=== PATIENT | male | born 1985 | race American Indian/Alaskan Native ===

== ENCOUNTER 2016-11-21 13:07 | Inpatient (IN) | payer MEDICAID, OTHER ==
[2016-11-21 13:23] VITALS: BMI 25.1
[2016-11-21 13:24] VITALS: O2SAT 100
--- NOTE | 2016-11-21 15:00 | ED PDOC ---
HPI: Psych/Substance Abuse Time Seen by Provider: 11/21/16 13:30 Chief Complaint (Nursing): Psychiatric Evaluation Chief Complaint (Provider): Suicidal Ideation History Per: Patient History/Exam Limitations: no limitations Onset/Duration Of Symptoms: Days (past couple of days) Current Symptoms Are (Timing): Still Present Suicide/Self Injury Attempted (Context): None Associated Symptoms: Suicidal Thoughts. denies: Suicidal Plan Involuntary Hold By: None Additional Complaint(s): Jose Pierre is a 31 year old male who presents to the ED on 11/21/16 with complaints of suicidal ideation that he has experienced over the past couple of days. Though he denies any homicidal ideation or active suicidal plan, patient does admit to having been noncompliant with his Effexor x2 weeks. Patient also reports having sustained a laceration to his posterior left hand 3 days ago, but otherwise has no physical complaints. PMD: none Past Medical History Reviewed: Historical Data, Nursing Documentation, Vital Signs Vital Signs: Last Vital Signs Temp 98.8 F 11/21/16 13:22 Pulse 85 11/21/16 13:22 Resp 16 11/21/16 13:22 BP 152/68 H 11/21/16 13:22 Pulse Ox 100 11/21/16 13:22 - Family History Family History: States: Unknown Family Hx - Home Medications Home Medications: Ambulatory Orders Medication Instructions Recorded Venlafaxine [Effexor-XR] 75 mg PO DAILY #30 cer 11/26/16 - Allergies Allergies/Adverse Reactions: Allergies Allergy/AdvReac Type Severity Reaction Status Date / Time No Known Allergies Allergy Verified 11/21/16 13:24 Review of Systems Psych: Positive for: Suicidal ideation (w/o active plan). Negative for: Other ( no homicidal ideation) Physical Exam - Reviewed Nursing Documentation Reviewed: Yes Vital Signs Reviewed: Yes - Physical Exam Appears: Positive for: Non-toxic, No Acute Distress Head Exam: Positive for: ATRAUMATIC, NORMOCEPHALIC Skin: Positive for: Normal Color, Warm, Dry Cardiovascular/Chest: Positive for: Regular Rate, Rhythm. Negative for: Murmur Respiratory: Positive for: Normal Breath Sounds. Negative for: Respiratory Distress Extremity: Positive for: Other (healing laceration noted to dorsum of left hand ; no signs of infection) Neurologic/Psych: Positive for: Alert, Oriented - Laboratory Results Result Diagrams: 11/21/16 16:15 11/21/16 16:15 - ECG O2 Sat by Pulse Oximetry: 100 (RA) Pulse Ox Interpretation: Normal Medical Decision Making Medical Decision Makin:30 Initial Impression: will clear patient medically for psychiatric evaluation Initial Plan: * Labs * Alcohol Serum * Urinalysis * Urine Drug Screen * Crisis Evaluation * Reevaluation Scribe Attestation: Documented by Giovanna Montgomery, acting as a scribe for Carline Zayas PA-C. Provider Scribe Attestation: All medical record entries made by the Scribe were at my direction and personally dictated by me. I have reviewed the chart and agree that the record accurately reflects my personal performance of the history, physical exam, medical decision making, and the department course for this patient. I have also personally directed, reviewed, and agree with the discharge instructions and disposition. Disposition - Clinical Impression Clinical Impression: Depression - Patient ED Disposition Is Patient to be Admitted: Yes - Disposition Disposition Time: 14:15 Condition: STABLE
[2016-11-21 16:21] LABS: HEMATOCRIT 38.6 % (35.0-51.0); MEAN CELL VOLUME 91.3 fl (80.0-94.0); MEAN CORPUSCULAR HEMOGLOBIN 30.6 pg (27.0-31.0); MEAN CORPUSCULAR HGB CONC 33.6 g/dL (33.0-37.0); RED CELL DISTRIBUTION WIDTH 14.8 % (11.5-14.5); WHITE BLOOD COUNT 5.4 K/uL (4.8-10.8)
[2016-11-21 16:40] LABS: RBC URINE < 1 /hpf (0-3); URINE BACTERIA FEW (<OCC); URINE BILIRUBIN NEGATIVE (NEGATIVE); URINE BLOOD NEGATIVE (NEGATIVE); URINE COLOR YELLOW (YELLOW); URINE GLUCOSE (UA) NEG (Normal); URINE KETONE NEGATIVE (NEGATIVE); URINE LEUKOCYTE ESTERASE NEG Leu/uL (Negative); URINE PROTEIN NEGATIVE (NEGATIVE); URINE UROBILINOGEN 0.2-1.0 mg/dL (0.2-1.0); WBC URINE 6 /hpf (0-5)
[2016-11-21 16:47] LABS: ALB/GLOB RATIO 0.9 (1.0-2.1); ALCOHOL SERUM < 10 mg/dl (0-10); ALKALINE PHOSPHATASE 58 U/L (38-126); ALT/SGPT 16 U/L (21-72); AST/SGOT 41 U/L (17-59); BILIRUBIN,TOTAL 0.4 mg/dl (0.2-1.3); BLOOD UREA NITROGEN 7 mg/dl (9-20); CALCIUM 8.7 mg/dL (8.4-10.2); CARBON DIOXIDE 25 mmol/L (22-30); CHLORIDE 103 mmol/L (98-107); GFR AFRICAN-AMERICAN > 60; GLUCOSE,RANDOM 92 mg/dL (75-110); POTASSIUM 3.8 MMOL/L (3.6-5.0); SODIUM 140 mmol/l (132-148); TOTAL PROTEIN 7.7 G/DL (6.3-8.2)
[2016-11-21] MEDS ORDERED: DiphenhydrAMINE 50 mg/ml Inj IM PRN (20:07)
[2016-11-21] MEDS ORDERED: Bismuth Subsalicylate 262 mg/15 ml Sus (240 ml) PO PRN (21:05)
[2016-11-21] MEDS ORDERED: Magnesium Hydroxide Susp 30 ml UD PO PRN (21:05)
[2016-11-21] MEDS ORDERED: Alum-Mag Hydrox-Simethicone Susp (30 mL) PO PRN (21:05)
[2016-11-22 08:32] LABS: T4 6.05 ug/dl (5.5-11.0)
[2016-11-22 09:40] LABS: THYROID STIMULATING HORMONE 0.35 mIU/ML (0.46-4.68)
--- NOTE | 2016-11-22 11:13 | CP.PCM.CON ---
History of Present Illness - History of Present Illness History of Present Illness: 31 yo male with recent diagnosis of HIV infection (6 months ago) admitted to Psyche unit after after slashing his left wrist with a broken glass 2 days ago. He claimed he is depress because his had left him due to his HIV status. He also complained of watery diarrhea since 2 days ago. Review of Systems - Review of Systems All systems: reviewed and no additional remarkable complaints except (aside from those mentioned above, 12 point system review were negative by me) Past Patient History - Past Social History Smoking Status: Heavy Smoker > 10 Cigarettes Daily Chewing Tobacco Use: No Cigar Use: No Alcohol: > 2 Drinks/Day Drugs: Cocaine - CARDIAC Hx Cardiac Disorders: No Hx Hypertension: No - PULMONARY Hx Respiratory Disorders: No Hx Tuberculosis: No - NEUROLOGICAL Hx Neurological Disorder: No HX Cerebrovascular Accident: No Hx Seizures: No - HEENT Hx HEENT Problems: No - RENAL Hx Chronic Kidney Disease: No - ENDOCRINE/METABOLIC Hx Endocrine Disorders: No - HEMATOLOGICAL/ONCOLOGICAL Hx Cancer: No Hx Human Immunodeficiency Virus (HIV): Yes - INTEGUMENTARY Hx Dermatological Problems: No - MUSCULOSKELETAL/RHEUMATOLOGICAL Hx Musculoskeletal Disorders: No - GASTROINTESTINAL Hx Diarrhea: Yes - GENITOURINARY/GYNECOLOGICAL Hx Genitourinary Disorders: No Hx Sexually Transmitted Disorders: No - PSYCHIATRIC Hx Depression: Yes Hx Substance Use: Yes - SURGICAL HISTORY Hx Surgeries: No - ANESTHESIA Hx Anesthesia: No Meds Allergies/Adverse Reactions: Allergies Allergy/AdvReac Type Severity Reaction Status Date / Time No Known Allergies Allergy Verified 11/21/16 13:24 - Medications Medications: Current Medications Acetaminophen (Tylenol 325mg Tab) 650 mg PO Q4 PRN PRN Reason: Pain, moderate (4-7) Al Hydrox/Mg Hydrox/Simethicone (Maalox Plus 30 Ml) 30 ml PO Q4 PRN PRN Reason: Dyspepsia Bismuth Subsalicylate (Pepto-Bismol) 524 mg PO Q4 PRN PRN Reason: Diarrhea Diphenhydramine HCl (Benadryl) 50 mg PO Q6 PRN PRN Reason: Extrapyramidal Symptoms Diphenhydramine HCl (Benadryl) 50 mg IM Q6 PRN PRN Reason: Extrapyramidal S/S Unable PO Diphenhydramine HCl (Benadryl) 50 mg PO HS PRN PRN Reason: Sleep Haloperidol (Haldol) 5 mg PO Q4 PRN PRN Reason: Agitation Haloperidol Lactate (Haldol) 5 mg IM Q4 PRN PRN Reason: Agitation, Unable to Take PO Lorazepam (Ativan) 2 mg PO Q4 PRN PRN Reason: Anxiety/Agitation Lorazepam (Ativan) 2 mg IM Q4 PRN PRN Reason: Anxiety/Agitation,Unable PO Magnesium Hydroxide (Milk Of Magnesia) 30 ml PO HS PRN PRN Reason: Constipation Venlafaxine HCl (Effexor) 75 mg PO DAILY [facility] Last Admin: 11/22/16 08:59 Dose: 75 mg Physical Exam - Constitutional Appears: No Acute Distress - Head Exam Head Exam: ATRAUMATIC - Eye Exam Eye Exam: absent: Scleral icterus - ENT Exam ENT Exam: Mucous Membranes Moist - Neck Exam Neck exam: Negative for: Meningismus - Respiratory Exam Respiratory Exam: absent: Rhonchi, Wheezes, Respiratory Distress - Cardiovascular Exam Cardiovascular Exam: REGULAR RHYTHM, +S1, +S2 - GI/Abdominal Exam GI & Abdominal Exam: Soft. absent: Tenderness - Rectal Exam Rectal Exam: Deferred - Extremities Exam Extremities exam: Negative for: normal inspection (dry and healing gaping laceration on left wrist) - Back Exam Back exam: absent: tenderness - Neurological Exam Neurological exam: Alert, Oriented x3 - Psychiatric Exam Psychiatric exam: Normal Affect - Skin Skin Exam: Dry, Intact Results - Vital Signs Recent Vital Signs: Last Vital Signs Temp 98.4 F 11/22/16 06:00 Pulse 77 11/22/16 06:00 Resp 18 11/22/16 06:00 BP 121/78 11/22/16 06:00 Pulse Ox 100 11/21/16 19:30 - Labs Result Diagrams: 11/21/16 16:15 11/21/16 16:15 Labs: Laboratory Results - last 24 hr 11/22/16 07:00 Triglycerides 58 Cholesterol 156 LDL Cholesterol Direct 91 HDL Cholesterol 42 Thyroxine (T4) 6.05 TSH 3rd Generation 0.35 L Assessment & Plan (1) Suicidal intent Status: Acute Comment: psyche is managing (2) Depression Status: Acute Comment: psyche is managing (3) HIV infection Status: Acute Comment: Viral Load and CD4/CD8 study. ID consult with Dr Schuster
--- NOTE | 2016-11-22 12:32 | PCM.PSYCH ---
Initial Psychiatric Evaluation - Initial Psychiatric Evaluation Type of Admission: Voluntary Legal Status: Capacity Chief Complaint (in patient's own words): "I WANTED TO KILL MYSELF" Patient's Reaction to Hospitalization: 31Y/O AA MALE W/ W/O DEPRESSION PRESENTS WITH WORSENING DEPRESSION IN THE CONTEXT OF NON-COMPLIANCE WITH TREATMENT, HIV+ STATUS AND SEPARATION FROM HIS . HE RECENTLY RELOCATED TO [place] FROM [place] DUE TO BECOMING ESTRANGED FROM HIS FAMILY. PT REPORTED THAT HE WAS FORCED TO RELOCATE ONCE HE REVEALED TO HIS FAMILY THAT HE IS HIV+ AND THEY COMPLETELY TURNED THEIR BACK ON HIM. PT REPORTED THAT HE HAS FAMILY IN [place] BUT UPON ARRIVAL TO THIS AREA HAS NO IDEA WHERE TO LOCATE SAID FAMILY. PT REPORTED THAT HE HAS BEEN WITHOUT HIS EFFEXOR FOR ONE WEEK NOW WHEREAS HE RAN OUT. HE REPORTED THAT APPROXIMATELY TWO DAYS AGO HE STARTED TO FEEL HOPELESS AND HELPLESS. HE REPORTED THAT HE STARTED TO BECOME OVERWHELMINGLY DEPRESSED AT WHICH TIME HE GAVE HIMSELF A TWO INCH LACERATION TO HIS LEFT FOREARM IN AN ATTEMPT TO HARM HIMSELF. PT PRESENTED TO THIS ER BECAUSE IN THE COMMUNITY HE WAS NOT ABLE TO CONTRACT FOR HIS SAFETY AND WAS AFRAID OF HIS OWN ACTIONS AND IMPULSIVITY. PT REPORTED BEING DISTRAUGHT OVER THE FACT THAT HIS FAMILY BECAME EXTREMELY JUDGMENTAL AND UNSUPPORTIVE UPON FINDING OUT THAT HE IS HIV+. HE BECAME MILDLY TEARFUL AND APATHETIC HE DESCRIBED HOW THEY THREW HIM AWAY BECAUSE OF IT AND REPORTED BEING REGRETFUL FOR TELLING THEM. PT REPORTED THAT HE WAS DIAGNOSED 7 MONTHS AGO AND HAS BEEN IN DENIAL HIMSELF; THEREFORE HAS NOT FOLLOWED UP WITH ANY ID DOCTORS. PT ADMITS TO USAGE OF COCAINE AND MARIJUANA. HE REPORTED THAT HE IS A SOCIAL USER AND ONLY USES ON THE WEEKEND. HE REPORTED THAT THE LAST TIME THAT HE USED WAS ONE WEEK AGO. PPHX: PT DENIED PRIOR ADMISSIONS. PT REPORTED THAT HE WAS IN TREATMENT WITH A PSYCHIATRIST IN [place]. HE REPORTED THAT HE WAS BEING PRESCRIBED EFFEXOR 75MGS BUT RAN OUT APPROXIAMTELY ONE WEEK AGO. PMHx: PT WAS DIAGNOSED WITH HIV 7 MONTHS AGO AND HAS NOT FOLLOWED UP WITH REGARDS TO HIS STATUS OR CURRENT TREATMENT SHX: PT REPORTED THAT HE HAS A HX OF ARRESTS IN [place] FOR BURGLARY AND [employer]AGON THEFT. 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 FROM . +4 KIDS, +COCAINE AND MARIJUANA USE. +WEEKEND ETOH USE, NO H/O ETOH WITHDRAWAL. ALL: NKDA FHx: NO FAMILY H/O MENTAL ILLNESS Current Medications: Active Medications Generic Name Dose Route Start Last Admin Trade Name Freq PRN Reason Stop Dose Admin Acetaminophen 650 mg 11/21/16 21:05 Tylenol 325mg Tab PO Q4 PRN Pain, moderate (4-7) Al Hydrox/Mg Hydrox/Simethicone 30 ml 11/21/16 21:05 Maalox Plus 30 Ml PO Q4 PRN Dyspepsia Bismuth Subsalicylate 524 mg 11/21/16 21:05 Pepto-Bismol PO Q4 PRN Diarrhea Diphenhydramine HCl 50 mg 11/21/16 20:07 Benadryl PO Q6 PRN Extrapyramidal Symptoms Diphenhydramine HCl 50 mg 11/21/16 20:07 Benadryl IM Q6 PRN Extrapyramidal S/S Unable PO Diphenhydramine HCl 50 mg 11/21/16 20:10 Benadryl PO HS PRN Sleep Haloperidol 5 mg 11/21/16 20:07 Haldol PO Q4 PRN Agitation Haloperidol Lactate 5 mg 11/21/16 20:07 Haldol IM Q4 PRN Agitation, Unable to Take PO Lorazepam 2 mg 11/21/16 20:07 Ativan PO Q4 PRN Anxiety/Agitation Lorazepam 2 mg 11/21/16 20:07 Ativan IM Q4 PRN Anxiety/Agitation,Unable PO Magnesium Hydroxide 30 ml 11/21/16 21:05 Milk Of Magnesia PO HS PRN Constipation Venlafaxine HCl 75 mg 11/22/16 09:00 11/22/16 08:59 Effexor PO 75 mg DAILY [facility] Administration Past Psychiatric History - Past Psychiatric History Pertinent Medical Hx (Current Medical&Sleep Prob, Allergies): Allergies Allergy/AdvReac Type Severity Reaction Status Date / Time No Known Allergies Allergy Verified 11/21/16 13:24 Venlafaxine [Effexor] 75 mg PO DAILY 11/21/16 Review of Systems - Review of Systems All systems: reviewed and no additional remarkable complaints except - Psychiatric Psychiatric: Depression, Difficulty Concentrating, Irritability, Mood Swings, Suicidal Ideation Mental Status Examination - Personal Presentation Personal Presentation: Looks stated age - Affect Affect: Constricted - Motor Activity Motor Activity: Calm - Reliability in Providing Information Reliability in Providing Information: Good - Speech Speech: Organized - Mood Mood: Depressed - Formal Thought Process Formal Thought Process: No Impairment - Obsessions/Compulsions Obsessions: No Compulsions: No - Cognitive Functions Orientation: Person, Place, Situation, Time Sensorium: Alert Estimate of Intelligence: Average Judgement: Intact, as evidence by: Good judgement, Intact, as evidence by: Insight regarding need for hospitalization Memory: Recent intact, as evidence by: Ability to recall events of the day, Recent intact, as evidence by: 3/3 object recall, Remote intact, as evidenced by : Abilit to recall sig. life events, Remote intact, as evidenced by: Ability to recall historical events - Risk Risk: Suicidal - Strength & Assets Inventory Strength & Assets Inventory: Cooperative - Limitations Limitations: Other (HOMELESSNESS, LACK OF SOCIAL SUPPORT, POVERTY) DSM 5 DX - DSM 5 DSM 5 Diagnosis: Major Depressive Disorder w/o psychotic symptoms - Recommended/Plan of Treatment Treatment Recommendations and Plan of Treatment: 31 yo male w/ h/o depression, reports worsening depression in the context of non -compliance with medications, recent diagnosis of HIV, lack of social support and recent separation from his . Patient has had recent suicidal ideation, but denies self injurious thoughts now and is able to contract for safety. -Admit to psychiatry -Hospitalist consult -ID consult re: HIV -Restart Effexor 75 mg PO Daily -No 1:1 needed at this time as the patient is able to contract for safety -Individual, group and milieu tx Projected ELOS: 3-5 days Discharge Plan and Discharge Criteria: Discharge when psychiatrically stable
--- NOTE | 2016-11-23 11:38 | PCM.PYCHPN ---
Psychiatric Progress Note - Psychiatric Progress Note Patient seen today, length of contact: Patient evaluated, case discussed with team, chart reviewed, 35 min Patient Chief Complaint: "I'm feeling better" Problems Identified/Issues Discussed: Patient reports that his mood has been improving since admission. He is hopeful now that he is receiving treatment and would like to be set up with follow-up care following discharge. No suicidal ideation/plan/intent. No nancie /delusions/hallucinations/HI/paranoia. He has improved appetite and sleep. Medication Change: No Medical Record Reviewed: Yes Mental Status Examination - Cognitive Function Orientation: Person, Place, Situation, Time Memory: Intact Attention: WNL Concentration: WNL Association: WNL Fund of Knowledge: WN Decription of patient's judgement and insights: Fair I/J - Mood Mood: Depressed - Affect Affect: Constricted - Speech Speech: Appropriate - Formal Thought Process Formal Thought Process: No Impairment Psychotic Thoughts and Behaviors: NO AH/VH/paranoia - Suicidal Ideation Suicidal Ideation: No - Homicidal Ideation Homicidal Ideation: No Goal/Treatment Plan - Goal/Treatment Plan Need for Continued Stay: Severe depression anxiety Progress Toward Problem(s) and Goals/Treatment Plan: 31 yo male w/ h/o depression, reports worsening depression in the context of non -compliance with medications, recent diagnosis of HIV, lack of social support and recent separation from his . Patient has had recent suicidal ideation, but denies self injurious thoughts now and is able to contract for safety. -Hospitalist consult appreciated -ID consult re: HIV -Continue Effexor 75 mg PO Daily -No 1:1 needed at this time as the patient is able to contract for safety -Individual, group and milieu tx Estimated Date of D/C: 11/26/16 - Smoking Cessation Smoking Cessation Initiated: Yes Reason for not providing: Given Nicotine Patch
--- NOTE | 2016-11-23 17:35 | CON ---
DATE: 11/23/2016 HISTORY OF PRESENT ILLNESS: The patient is a 31-year-old male who was admitted to [facility] because of a suicidal ideation and attempt. He apparently slashed his wrist with broken glass 2 days ago. He also told me that he was [place] get [place] could not get to [place] without money to get on the ferry or the train so he subsequently became very depressed and developed some stomach pains and rather than commit suicide, he went to the hospital. He recently found out that he was HIV positive and he was essentially, according to him, banished from his family in [place]. He has a and 4 children and other family members there When you speak to him, it appears that he is in [place] because he may have family in [place] and he verbalizes a story on TV, when one goes to the airport and say "how far will the money I have take me." Anyway, he is here homeless and is HIV positive and has never followed up on his care. He is a smoker, drinks alcohol and has used cocaine. His toxicology screen showed cocaine and marijuana. PHYSICAL EXAMINATION: GENERAL: On discussion with him, he is alert, cooperative, and oriented to time and place. He is quite pleasant. I discussed the fact that HIV disease can be treated today and there is absolutely no reason to become despondent. Depression I understand, but despondent over HIV -- no. Obviously, he is extraordinarily depressed because of his personal situation. HEENT: He does show evidence of facial wasting, especially in the temporal area , so I do not know how long he may have had the HIV virus. He does state that he is bisexual and never injected any drugs. NECK: Supple, no significant adenopathy. LUNGS: Clear. HEART: Regular sinus rhythm. ABDOMEN: Soft. Liver is 1-1/2 fingers below right costal margin. EXTREMITIES: No CCE. IMPRESSION: Suicidal ideation, severe depression, human immunodeficiency virus disease. I have ordered labs, HIV genotyping. hepatitis profile A, B and C and he has a T-lymphocyte profile pending as well as an HIV viral load or HIV RNA PCR. Also ordered an RPR He needs to be seen by [employer] and crm and helped for senior living or placement and hopefully we can refer him to our HIV clinic in the [facility]. If not, I also advised him that we could help him at [facility] in [place]. He did ask me for [facility] contacts Emmanuel Schuster MD cc: [phone] TT: 11/23/2016 17:34:58 Confirmation # [id number] Dictation # [id number] ln MTDD
[2016-11-24] MEDS: Bacitracin OINT 15GM TOP SCH (09:00)
[2016-11-24 10:01] LABS: % CD3 (MATURE T CELL) 71 Percent (57-85)
--- NOTE | 2016-11-24 11:10 | PCM.PYCHPN ---
Psychiatric Progress Note - Psychiatric Progress Note Patient seen today, length of contact: Patient evaluated, case discussed with team, chart reviewed Patient Chief Complaint: "I'm feeling better" Problems Identified/Issues Discussed: Patient reports that his mood has been improving since admission. We discussed the importance of compliance with treatment. No suicidal ideation/plan/intent. No nancie/delusions/hallucinations/HI/paranoia. He has improved appetite and sleep. Medication Change: No Medical Record Reviewed: Yes Mental Status Examination - Cognitive Function Orientation: Person, Place, Situation, Time Memory: Intact Attention: WNL Concentration: WNL Association: WNL Fund of Knowledge: [facility] Decription of patient's judgement and insights: Fair I/J - Mood Mood: Depressed - Affect Affect: Constricted - Speech Speech: Appropriate - Formal Thought Process Formal Thought Process: No Impairment Psychotic Thoughts and Behaviors: NO AH/VH/paranoia/delusions - Suicidal Ideation Suicidal Ideation: No - Homicidal Ideation Homicidal Ideation: No Goal/Treatment Plan - Goal/Treatment Plan Need for Continued Stay: Severe depression anxiety Progress Toward Problem(s) and Goals/Treatment Plan: 31 yo male w/ h/o depression, reports worsening depression in the context of non -compliance with medications, recent diagnosis of HIV, lack of social support and recent separation from his . Patient has had recent suicidal ideation, but denies self injurious thoughts now and is able to contract for safety. Patient is improving clinically. -Hospitalist consult appreciated -ID consult appreciated, labs pending; patient will need to follow-up as an outpatient prior to starting HAART medications -Continue Effexor 75 mg PO Daily -Individual, group and milieu tx Estimated Date of D/C: 11/26/16 - Smoking Cessation Smoking Cessation Initiated: Yes
--- NOTE | 2016-11-25 09:04 | PCM.PYCHPN ---
Psychiatric Progress Note - Psychiatric Progress Note Patient seen today, length of contact: Patient evaluated, case discussed with team, chart reviewed Patient Chief Complaint: "I'm feeling better" Problems Identified/Issues Discussed: No significant events overnight. Patient reports that his mood has been improving since admission. We discussed the importance of compliance with treatment. No suicidal ideation/plan/intent. No nancie/delusions/hallucinations /HI/paranoia. He has improved appetite and sleep. Medication Change: No Medical Record Reviewed: Yes Mental Status Examination - Cognitive Function Orientation: Person, Place, Situation, Time Memory: Intact Attention: WNL Concentration: WNL Association: WNL Fund of Knowledge: [facility] Decription of patient's judgement and insights: Fair I/J - Mood Mood: Neutral - Affect Affect: Broad - Speech Speech: Appropriate - Formal Thought Process Formal Thought Process: No Impairment Psychotic Thoughts and Behaviors: NO AH/VH/paranoia/delusions - Suicidal Ideation Suicidal Ideation: No - Homicidal Ideation Homicidal Ideation: No Goal/Treatment Plan - Goal/Treatment Plan Need for Continued Stay: Severe depression anxiety Progress Toward Problem(s) and Goals/Treatment Plan: 31 yo male w/ h/o depression, reports worsening depression in the context of non -compliance with medications, recent diagnosis of HIV, lack of social support and recent separation from his . Patient has had recent suicidal ideation, but denies self injurious thoughts now and is able to contract for safety. Patient is improving clinically. -Hospitalist consult appreciated -ID consult appreciated, labs pending; patient will need to follow-up as an outpatient prior to starting HAART medications -Continue Effexor 75 mg PO Daily -Individual, group and milieu tx -Discharge tomorrow if the patient continues to improve clinically Estimated Date of D/C: 11/26/16
[2016-11-25] MEDS: Bacitracin OINT 15GM TOP SCH (09:05)
[2016-11-26 06:14] VITALS: BP 119/61; PULSE 84; RESP 18; TEMP 98.1
[2016-11-26] MEDS: Bacitracin OINT 15GM TOP SCH (09:40)
--- NOTE | 2016-11-26 09:52 | PCM.PYCHDC ---
Mental Status Examination - Mental Status Examination Orientation: Person, Place, Situation, Time Memory: Intact Mood: Neutral Affect: Broad Speech: Appropriate Attention: WNL Concentration: WNL Association: WNL Fund of Knowledge: WNL Formal Thought Process: No Impairment Description of patient's judgement and insight: Fair I/J Psychotic Thoughts and Behaviors: NO AH/VH/paranoia/delusions Suicidal Ideation: No Current Homicidal Ideation?: No Discharge Summary - Discharge Note Reason for Hospitalization: 31Y/O AA MALE W/ W/O DEPRESSION PRESENTS WITH WORSENING DEPRESSION IN THE CONTEXT OF NON-COMPLIANCE WITH TREATMENT, HIV+ STATUS AND SEPARATION FROM HIS . HE RECENTLY RELOCATED TO [place] FROM [place] DUE TO BECOMING ESTRANGED FROM HIS FAMILY. PT REPORTED THAT HE WAS FORCED TO RELOCATE ONCE HE REVEALED TO HIS FAMILY THAT HE IS HIV+ AND THEY COMPLETELY TURNED THEIR BACK ON HIM. PT REPORTED THAT HE HAS FAMILY IN [place] BUT UPON ARRIVAL TO THIS AREA HAS NO IDEA WHERE TO LOCATE SAID FAMILY. PT REPORTED THAT HE HAS BEEN WITHOUT HIS EFFEXOR FOR ONE WEEK NOW WHEREAS HE RAN OUT. HE REPORTED THAT APPROXIMATELY TWO DAYS AGO HE STARTED TO FEEL HOPELESS AND HELPLESS. HE REPORTED THAT HE STARTED TO BECOME OVERWHELMINGLY DEPRESSED AT WHICH TIME HE GAVE HIMSELF A TWO INCH LACERATION TO HIS LEFT FOREARM IN AN ATTEMPT TO HARM HIMSELF. PT PRESENTED TO THIS ER BECAUSE IN THE COMMUNITY HE WAS NOT ABLE TO CONTRACT FOR HIS SAFETY AND WAS AFRAID OF HIS OWN ACTIONS AND IMPULSIVITY. PT REPORTED BEING DISTRAUGHT OVER THE FACT THAT HIS FAMILY BECAME EXTREMELY JUDGMENTAL AND UNSUPPORTIVE UPON FINDING OUT THAT HE IS HIV+. HE BECAME MILDLY TEARFUL AND APATHETIC HE DESCRIBED HOW THEY THREW HIM AWAY BECAUSE OF IT AND REPORTED BEING REGRETFUL FOR TELLING THEM. PT REPORTED THAT HE WAS DIAGNOSED 7 MONTHS AGO AND HAS BEEN IN DENIAL HIMSELF; THEREFORE HAS NOT FOLLOWED UP WITH ANY ID DOCTORS. PT ADMITS TO USAGE OF COCAINE AND MARIJUANA. HE REPORTED THAT HE IS A SOCIAL USER AND ONLY USES ON THE WEEKEND. HE REPORTED THAT THE LAST TIME THAT HE USED WAS ONE WEEK AGO. PPHX: PT DENIED PRIOR ADMISSIONS. PT REPORTED THAT HE WAS IN TREATMENT WITH A PSYCHIATRIST IN [place]. HE REPORTED THAT HE WAS BEING PRESCRIBED EFFEXOR 75MGS BUT RAN OUT APPROXIAMTELY ONE WEEK AGO. PMHx: PT WAS DIAGNOSED WITH HIV 7 MONTHS AGO AND HAS NOT FOLLOWED UP WITH REGARDS TO HIS STATUS OR CURRENT TREATMENT SHX: PT REPORTED THAT HE HAS A HX OF ARRESTS IN [place] FOR BURGLARY AND ARAGON THEFT. 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 FROM . +4 KIDS, +COCAINE AND MARIJUANA USE. +WEEKEND ETOH USE, NO H/O ETOH WITHDRAWAL. ALL: NKDA FHx: NO FAMILY H/O MENTAL ILLNESS Laboratory Data: Abnormal Lab Results 11/24/16 05:30 Hepatitis A IgM Ab Negative Hep Bs Antigen Negative Hep Bs Antibody Positive Hep B Core IgM Ab Negative Hepatitis C Antibody Negative Consultations:: List each consultation separately and include: 1. Reason for request. 2. Findings. 3. Follow-up Consultations: Medicine Consult, Infectious Disease consult- patient to follow-up as an outpatient once all lab work returns in order to start HAART Summary of Hospital Course include:: 1. Description of specific treatment plan utilized for patients during their course of treatmen. 2. Summarize the time- course for resolution of acute symptoms and/or regressed behaviors. 3. Describe issues identified and worked on during hospitalization. 4. Describe medication utilized. 5. Describe medical problems identified and treated. 6. Reassessment of suicide risk Summary of Hospital Course: Patient admitted to the hospital. He was started back on Effexor 75 mg PO Daily. He reports improvement in mood and no longer reports self-injurious ideation. - Final Diagnosis (DSM 5) Condition upon Discharge: STABLE DSM 5: Major Depressive Disorder Disposition: HOME/ ROUTINE Follow-up Treatment Plan: 31 yo male w/ h/o depression, admitted for worsening depression in the context of non-compliance with medications, recent diagnosis of HIV, lack of social support and recent separation from his . Patient has improved clinically, reports improved mood, no current ideation to harm self. He is psychiatrically stable for discharge. 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
[2016-12-03 18:24] LABS: HIV-1 GENOTYPE DETECTED (())
== END 2016-11-26 12:50 | disposition home or self-care (01) | DRG 426 ==
LOC: H.ER 13:07 → H.ERHOLD 18:53 → H.STEP 20:05
PROVIDERS: ADMIT Psychiatry & Neurology Psychiatry; ATTEND Psychiatry & Neurology Psychiatry
PROC: GZHZZZZ Group Psychotherapy (ICD-10-PCS; principal; 2016-11-21)
DX: F32.9 Major depressive disorder, single episode, unspecified (principal); R45.851 Suicidal ideations; Z91.14 Patient's other noncompliance with medication regimen; F17.200 Nicotine dependence, unspecified, uncomplicated; Z59.0 Homelessness; F41.9 Anxiety disorder, unspecified; Z21 Asymptomatic human immunodeficiency virus [HIV] infection status